=== PATIENT | male | born 1960 ===

== ENCOUNTER → 2021-08-29 | Outpatient (CLI) | payer OTHER ==
[2021-08-29 19:33] LABS: BASOPHILS ABSOLUTE AUTO 0.03 K/mm3 (0.00-0.23); BASOPHILS PERCENT AUTO 1 % (0-2); EOSINOPHILS ABSOLUTE AUTO 0.35 K/mm3 (0.00-0.68); EOSINOPHILS PERCENT AUTO 6 % (0-6); Hematocrit 32.5 % (37.0-53.0); Hemoglobin 11.3 g/dL (13.5-17.5); IMMATURE GRAN ABSOLUTE AUTO 0.01 K/mm3 (0.00-0.10); IMMATURE GRAN PERCENT AUTO 0 % (0-1); LYMPHOCYTES ABSOLUTE AUTO 1.59 K/mm3 (0.84-5.20); LYMPHOCYTES PERCENT AUTO 26 % (21-46); MONOCYTES ABSOLUTE AUTO 0.31 K/mm3 (0.16-1.47); MONOCYTES PERCENT AUTO 5 % (4-13); Mean Corpuscular HGB 34.6 pg (26.0-34.0); Mean Corpuscular HGB Conc 34.8 g/dL (31.5-36.5); Mean Corpuscular Volume 99 fL (80-100); Mean Platelet Volume 10.5 fL (9.1-12.4); NEUTROPHILS ABSOLUTE AUTO 3.86 K/mm3 (1.96-9.15); NEUTROPHILS PERCENT AUTO 63 % (41-73); Platelet Count 267 K/mm3 (150-400); RDW Coefficient Variation 13.2 % (11.7-14.2); RDW Standard Deviation 47.7 fL (35.1-46.3); Red Blood Cell Count 3.27 M/mm3 (4.30-5.90); White Blood Cell Count 6.15 K/mm3 (4.00-11.30)
[2021-08-29 20:08] LABS: C-REACTIVE PROTEIN, EXT RANGE 0.968 mg/dL (0.000-0.300)
== END ==
LOC: LAB SHORT 18:09
PROVIDERS: Family Medicine
DX: R77.8 Other specified abnormalities of plasma proteins (principal)
CPT/HCPCS: 82728; 85025; 85651; 86140

== ENCOUNTER → 2022-08-19 | Outpatient (CLI) | payer OTHER ==
[2022-08-19 15:54] LABS: Source, Urine Voided
[2022-08-19 17:18] LABS: Appearance, Urine Clear (Clear); Bilirubin, Urine Neg (Neg); Blood, Urine Neg (Neg); Glucose Qualitative, Urine Neg (Neg); Ketones, Urine Neg (Neg); Leukocyte Esterase, Urine Neg (Neg); Nitrite, Urine Neg (Neg); Protein, Urine 1+ (Neg); Urobilinogen, Urine NORM (Normal)
[2022-08-19 18:02] LABS: Protein, Urine Random 16.3 mg/dL (0.0-11.9); Protein/Creat Ratio, Ur Random 0.3
[2022-08-19 18:17] LABS: Color, Urine Pale Yellow (P-Yellow)
== END | disposition home or self-care (01) ==
LOC: LAB 11:45 → LAB SHORT 11:45
PROVIDERS: Internal Medicine Nephrology
DX: N18.2 Chronic kidney disease, stage 2 (mild) (principal)
CPT/HCPCS: 82570; 84156

== ENCOUNTER 2023-02-05 02:45 | Day surgery (SDC) | payer OTHER ==
[2023-02-05] MEDS ORDERED: ASPI81CH PO (11:51)
[2023-02-05] MEDS ORDERED: BACL10 PO (11:52)
[2023-02-05] MEDS ORDERED: ALLO300 PO (11:52)
[2023-02-05] MEDS ORDERED: AMLO5 PO (11:52)
[2023-02-05] MEDS ORDERED: FOLI1 PO (11:53)
[2023-02-05] MEDS ORDERED: FAMO20 PO (11:53)
[2023-02-05] MEDS ORDERED: B-12500 MC2 PO (11:53)
[2023-02-05] MEDS ORDERED: GABA300 PO ×3 (11:54→12:06)
[2023-02-05] MEDS ORDERED: GLIP2.5ER PO (12:06)
[2023-02-05] MEDS ORDERED: HYDCHL25 PO (12:07)
[2023-02-05] MEDS ORDERED: LISI20 PO (12:08)
[2023-02-05] MEDS ORDERED: TRAM50 PO (12:08)
[2023-02-05] MEDS ORDERED: TRAZ50 (12:08)
== END 2023-02-05 11:45 | disposition home or self-care (01) ==
LOC: ATC 02:45
DX: R32 Unspecified urinary incontinence (principal); E11.22 Type 2 diabetes mellitus with diabetic chronic kidney disease; N18.2 Chronic kidney disease, stage 2 (mild); M10.9 Gout, unspecified; I12.9 Hypertensive chronic kidney disease with stage 1 through stage 4 chronic kidney disease, or unspecified chronic kidney disease; M54.30 Sciatica, unspecified side; R15.9 Full incontinence of feces
CPT/HCPCS: 51798

== ENCOUNTER → 2023-10-08 | Outpatient (CLI) | payer OTHER ==
[~2023-10-08] MED LIST: ALLO300 PO; AMLO5 PO; ASPI81CH PO; B-12500 MC2 PO; BACL10 PO; FAMO20 PO; FOLI1 PO; GABA300 PO; GLIP2.5ER PO; HYDCHL25 PO; LISI20 PO; TRAM50 PO; TRAZ50
[2023-10-08 19:30] LABS: BASOPHILS ABSOLUTE AUTO 0.05 K/mm3 (0.00-0.23); BASOPHILS PERCENT AUTO 1 % (0-2); EOSINOPHILS ABSOLUTE AUTO 0.81 K/mm3 (0.00-0.68); EOSINOPHILS PERCENT AUTO 13 % (0-6); Hematocrit 33.7 % (37.0-53.0); IMMATURE GRAN ABSOLUTE AUTO 0.01 K/mm3 (0.00-0.10); IMMATURE GRAN PERCENT AUTO 0 % (0-1); LYMPHOCYTES ABSOLUTE AUTO 2.09 K/mm3 (0.84-5.20); LYMPHOCYTES PERCENT AUTO 33 % (21-46); MONOCYTES ABSOLUTE AUTO 0.31 K/mm3 (0.16-1.47); MONOCYTES PERCENT AUTO 5 % (4-13); Mean Corpuscular HGB 34.2 pg (26.0-34.0); Mean Corpuscular HGB Conc 32.6 g/dL (31.5-36.5); Mean Corpuscular Volume 105 fL (80-100); Mean Platelet Volume 10.3 fL (9.1-12.4); NEUTROPHILS PERCENT AUTO 49 % (41-73); Platelet Count 204 K/mm3 (150-400); RDW Coefficient Variation 13.1 % (11.7-14.2); Red Blood Cell Count 3.22 M/mm3 (4.30-5.90); White Blood Cell Count 6.37 K/mm3 (4.00-11.30)
[2023-10-08 19:57] LABS: Percent Saturation 30.1 % (20.0-50.0)
[2023-10-08 19:58] LABS: Albumin/Globulin Ratio 1.2 (0.8-1.8); Bilirubin, Total 0.3 mg/dL (0.1-1.0); Bun/Creatinine Ratio 19.3 (12.0-20.0); Calcium, Blood 9.2 mg/dL (8.5-10.1); Creatinine, Blood 1.5 mg/dL (0.60-1.20); Globulin, Blood 3.4 g/dL (2.2-4.0); Potassium, Blood 4.8 mmol/L (3.5-5.5); Total Protein, Blood 7.4 g/dL (6.4-8.2)
== END ==
LOC: LAB SHORT 16:45 → LAB 16:45
PROVIDERS: Family Medicine
DX: E55.9 Vitamin D deficiency, unspecified (principal)
CPT/HCPCS: 80053; 82306; 82728; 83540; 83550; 85025

== ENCOUNTER → 2024-10-11 | Outpatient (CLI) | payer OTHER | LOC: LAB SHORT 18:44 → LAB 18:44 | DX: E55.9 Vitamin D deficiency, unspecified (principal); E53.8 Deficiency of other specified B group vitamins | CPT/HCPCS: 82306; 82607; 82746 ==